=== PATIENT | female | born 1955 | race Caucasian/White ===

== ENCOUNTER 2016-09-29 06:34 | Inpatient (IN) | payer BC ==
--- NOTE | 2016-09-20 09:55 | Anesthesia Consultation ---
Anesthesia Consult and Med Hx Date of service: 09/29/16 - Airway Anesthetic Teeth Evaluation: Dentures ROM Head & Neck: Adequate Mental/Hyoid Distance: Adequate Mallampati Class: Class II Intubation Access Assessment: Good - Pre-Operative Health Status ASA Pre-Surgery Classification: ASA1 Proposed Anesthetic Plan: Epidural, Spinal Nerve Block: Femoral - Pulmonary Hx Smoking: No Hx Sleep Apnea: No (BOO PRE SCREEN LOW RISK) - Cardiovascular System Hx Hypertension: No - Other Systems Hx Cancer: No
[2016-09-20 09:57] LABS: Basophils % (Auto) 0.7 % (0.0-1.8); Eosinophils % (Auto) 7.7 % (0.0-4.3); Hemoglobin 15.6 gm/dl (10.1-14.3); Mean Corpuscular HGB Conc 33 % (30-34); Mean Corpuscular Hemoglobin 31 pg (28-32); Mean Corpuscular Volume 92 fl (79-97); Platelet Count 263 K/mm3 (140-440); White Blood Count 7.2 K/mm3 (4.5-11.0)
[2016-09-20 10:18] LABS: Alanine Aminotransferase 18 units/L (7-56); Albumin 4.4 g/dL (3.9-5); Albumin/Globulin Ratio 1.4 %; Alkaline Phosphatase 80 units/L (35-129); Anion Gap 17 mmol/L; Bilirubin,Total 0.5 mg/dL (0.1-1.2); Blood Urea Nitrogen 12 mg/dL (7-17); Calcium 10.2 mg/dL (8.4-10.2); Carbon Dioxide 23 mmol/L (22-30); Chloride 106.3 mmol/L (98-107); Glucose 97 mg/dL (65-100); Potassium 3.9 mmol/L (3.6-5.0); Sodium 142 mmol/L (137-145); Total Protein 7.6 g/dL (6.3-8.2)
--- NOTE | 2016-09-28 14:48 | History and Physical Report ---
History of Present Illness Date of examination: 09/28/16 Date of admission: 09/29/16 Chief complaint: Painful limitation of movement right knee, feeling it giving out. Evaluation in the office revealed loose body with early DJD. Being admitted for elective total knee arthroplasty. Medications and Allergies Allergies Allergy/AdvReac Type Severity Reaction Status Date / Time No Known Allergies Allergy Verified 09/09/16 11:32 Home Medications Medication Instructions Recorded Confirmed Last Taken Type Acyclovir [Zovirax Tab] 800 mg PO TID 09/20/16 09/20/16 Unknown History Cetirizine HCl [ZyrTEC] 10 mg PO DAILY 09/20/16 09/20/16 Unknown History Ergocalciferol [Vitamin D2] 1 cap PO 2XW 09/20/16 09/20/16 Unknown History Gabapentin [Neurontin] 900 mg PO QHS 09/20/16 09/20/16 Unknown History Pnv95/Ferrous Fumarate/FA 1 tab PO DAILY 09/20/16 09/20/16 Unknown History [ Caplet] traMADol 50 mg PO PRN PRN 09/20/16 09/20/16 Unknown History Active Meds: Active Medications Cefazolin Sodium (Ancef/Sterile Water 2 Gm/20 Ml) 2 gm in 20 mls @ 40 mls/hr IV PREOP NR PRN Reason: Protocol Stop: 09/29/16 23:59 Lactated Ringer's (Lactated Ringers) 1,000 mls @ 125 mls/hr IV DIRECT KM Review of Systems All systems: negative Exam - Constitutional Vitals: Temp Pulse Resp BP Pulse Ox 98.1 F 74 18 120/80 09/20/16 10:00 09/20/16 10:00 09/20/16 10:00 09/20/16 10:00 General appearance: Present: no acute distress, well-nourished - EENT Eyes: Present: PERRL ENT: hearing intact, clear oral mucosa - Neck Neck: Present: supple, normal ROM - Respiratory Respiratory effort: normal Respiratory: bilateral: CTA - Cardiovascular Heart Sounds: Present: S1 & S2. Absent: rub, click - Extremities Extremities: pulses symmetrical, No edema, abnormal (Right knee with a 5 varus , mild swelling, painful range of motion -3 flexion 100, no joint effusion. Joint line tenderness medial and patellofemoral. No neurovascular deficits. Collateral ligaments are stable.) Peripheral Pulses: within normal limits - Abdominal General gastrointestinal: Present: soft, non-tender, non-distended, normal bowel sounds Female genitourinary: Present: normal - Integumentary Integumentary: Present: clear, warm, dry - Musculoskeletal Musculoskeletal: gait normal, strength equal bilaterally - Psychiatric Psychiatric: appropriate mood/affect, intact judgment & insight - Neurologic Neurologic: CNII-XII intact, moves all extremities Results - Labs CBC & Chem 7: 09/20/16 09:45 09/20/16 09:45 Assessment and Plan - Patient Problems (1) Primary osteoarthritis of right knee Status: Chronic Plan to address problem: total knee arthroplasty right side
[~2016-09-29 06:34] MED LIST: ANCEF/STERILE WATER 2 GM/20 ML 2 GM/20 ML SYRINGE IV NR; LACTATED RINGERS 1,000 ML IV SCH; PEPCID PO NR; VERSED IV NR
[2016-09-29] MEDS ORDERED: NACL BACTERIOSTATIC INFILTRATI ONE (06:39)
[2016-09-29] MEDS ORDERED: VERSED IV NR (07:00)
[2016-09-29] MEDS ORDERED: NEURONTIN PO NR (07:00)
[2016-09-29] MEDS ORDERED: DECADRON IV NR (07:51)
[2016-09-29] MEDS ORDERED: MARCAINE-EPI/PF 0.5%-1:200,000 INFILTRATI ONE (07:53)
[2016-09-29] MEDS ORDERED: MARCAINE-EPI 0.5%-1:200,000 INFILTRATI ONE (07:54)
[2016-09-29] MEDS ORDERED: MARCAINE 0.5% 30 ML INFILTRATI ONE (07:55)
[2016-09-29] MEDS ORDERED: XYLOCAINE 1% 20 mL ONE (07:55)
[2016-09-29] MEDS ORDERED: XYLOCAINE CARDIAC IV ONE (07:56)
[2016-09-29] MEDS ORDERED: SUBLIMAZE ONE (07:56)
[2016-09-29] MEDS ORDERED: DIPRIVAN 10 MG/ML IV ONE (07:56)
[2016-09-29] MEDS ORDERED: CLONIDINE 1,000 MCG/10 ML VIAL EP ONE (08:00)
--- NOTE | 2016-09-29 08:28 | Admit Criteria Form ---
Admission Criteria Documentation: AMBULATORY SURGERY EXCEPTION CRITERIA Ambulatory Surgery Exception Criteria ( Place 'X' for any and all applicable criteria): Surgery or procedure performed on ambulatory basis may require inpatient stay for[A] ANY ONE of the following(1)(2)(3)(4)(5)(6)(7)(8)(9): [X] I. A preoperative situation, condition, or finding that warrants inpatient stay as indicated by ANY ONE of the following: [X] a) Inpatient care needed because of severity of a disease or condition rather than the surgery (eg, severe cardiac or respiratory disease, severe infection) (15) (16 ) (17) (18) [] b) Emergent procedure (eg, angioplasty for acute ischemia)(19) [] c) Complex surgical approach or situation as indicated by ANY ONE of the following(3): [] i) Open approach needed instead of usual endoscopic, transcatheter, or other less invasive procedure [] ii) Difficult approach because of previous operation [] iii) Airway monitoring required after open neck procedures(20)(21) [] iv) Large mass requiring unusually extensive dissection [] v) Additional complicating feature requiring inpatient care (eg, drain management)(22(23): [] d) Major surgery in a pt with high anesthetic risk as indicated by ANY ONE of the following (2)(3)(5)(7)(8): [] i) ASA risk class III or higher (severe systemic disease impairing function) [D] [] ii) Advanced age (eg, older than 85 years)(14)(24) [] iii) Symptomatic heart failure(25) [] iv) Symptomatic asthma or COPD(8)(21) [] v) Morbid obesity with hemodynamic or respiratory problems(20)( 21)(26)(27) [] vi) Obstructive sleep apnea(20)(21) [] vii) Former premature infants who are younger than 60 weeks [] viii) High risk for severe postoperative abnormalities (eg, severe postoperative hypocalcemia after parathyroidectomy for severe hyperparathyroidism)(27)( 28) [] ix) Unstable angina(25) [] e) Drug-related risk requiring inpatient stay as indicated by ANY ONE of the following(5)(10)(14)(32)(33) [] i) Procedure requires discontinuing drugs or other therapy (eg , antiarrhythmic medication, antiseizure medication), which necessitates inpatient observation or treatment.(18)(31) [] ii) Major surgery and high risk drug use as indicated by ANY ONE of the following: [] 1) Active abuse of cocaine or similar drug [] 2) Monoamine oxidase inhibitor use [] 3) Other drug identified as posing risk [] f) Inadequate outpatient care situation as indicated by ANY ONE of the following(5)(10)(14)(32)(33) [] i) Patient lives remote from medical facility and procedure has urgent complication potential, and temporary nearby residence cannot be arranged [] ii) Patient will have postprocedure incapacitation and inadequate assistance at home, or alternative level of care cannot be arranged. [] iii) Patient will have long general anesthesia or procedure side effect resolution time, and competent person to stay with patient on first postoperative night at home or alternative level of care cannot be arranged. []iv) Other inadequate outpatient situation that cannot be handled by other means [] II. A perioperative event, condition, or finding that warrants inpatient stay as indicated by ANY ONE of the following (1)(2)(3): [] a) Inadequate physiologic recovery: cardiovascular, respiratory, or hemodynamic status not normal or near preoperative baseline(18) [] b) Hemodynamic instability [] c) Patient not alert with near normal or baseline mental status [] d) Temperature not normal or as expected and not appropriate for outpatient treatment of condition [] e) Ambulatory or appropriate activity level status not yet achieved post procedure [E](34)(35)(36) [] f) Operative site not appropriate (eg, unexpected or excessive drainage or bleeding) [] g) Postoperative effects not resolved or adequately managed (eg, significant pain or vomiting not appropriate for outpatient or next level of care)(10)(12) [] h) Complicating features requiring inpatient care as indicated by ANY ONE of the following(37): [] i) Severe complications of procedure (eg, bowel injury, airway compromise, vascular injury,severe hemorrhage) [] ii) Extensive (eg, dissection far beyond usual scope of procedure ) or prolonged (eg, 120 minutes beyond usual) surgery needed requiring inpatient postoperative care [] iii) Conversion to an open or complex procedure that requires inpatient care (eg, open vs laparoscopic cholecystectomy, abdominal vs vaginal hysterectomy)(38) [] iv) Comorbid condition or test result identified during or post procedure that requires inpatient care (7) [] v) Malignant hyperthermia(30) [] vi) Other complicating feature requiring inpatient care(22)(23) Inpatient stay may be needed until ALL of the following are present (1)(2)(3)(4) (5)(6)(10)(14)(33)(40): []a) Physiologic recovery: cardiovascular, respiratory, and hemodynamic status normal or near preoperative baseline []b) Hemodynamic stability []c) Patient alert, with near normal or baseline mental status []d) Temperature appropriate: patient afebrile or temperature appropriate for outpt treatment of condition []e) Activity level appropriate: ambulatory or appropriate activity level post procedure []f) Operative site appropriate as indicated by ALL of the following: []i) Site dry or with expected drainage []ii) Any blood noted is as expected for procedure. []g) Postoperative effects resolved or managed as indicated by ALL of the following: []i) Pain management appropriate for outpatient (or next level of) care(10) []ii) Minimal nausea and vomiting: if present, successfully treated with oral medication(12) []iii) Headache, dizziness, or drowsiness (if present) are mild. []h) Voiding status acceptable as indicated by ANY ONE of the following: []i) Voiding spontaneously []ii) No voiding but instructions given for follow-up in 6 to 8 hours []iii) Urinary catheter in place, and instructions given for follow-up []i) Complicating features requiring inpatient care manageable at a lower level of care(37) []j) Comorbid conditions manageable at a lower level of care(37) The original [employer] content created by [employer] has been revised. The portions of the content which have been revised are identified through the use of italic text or in bold, and [employer] has neither reviewed nor approved the modified material. All other unmodified content is copyright [employer]. Please see references footnoted in the original [employer] edition 2016 Admission Criteria Met: Yes
[2016-09-29] MEDS ORDERED: ePHEDrine SULFATE ONE (08:32)
[2016-09-29] MEDS ORDERED: ZOFRAN ONE (08:53)
[2016-09-29] MEDS ORDERED: DECADRON ONE (08:53)
[2016-09-29] MEDS ORDERED: NACL 0.9% IR ONE ×2 (09:02)
[2016-09-29] MEDS ORDERED: NEOSPORIN GU IR ONE (09:02)
[2016-09-29] MEDS ORDERED: WATER FOR IRRIG STERILE IR ONE (09:03)
--- NOTE | 2016-09-29 09:51 | Procedure Note ---
Date of procedure: 09/29/16 Pre-op diagnosis: DJD Right knee Post-op diagnosis: same Procedure: Right total knee arthroplasty (Simeon, cemented) Anesthesia: GETA, regional Surgeon: CASSIDY EVANGELISTA Estimated blood loss: minimal Specimen disposition: to lab Condition: stable Disposition: PACU
[2016-09-29] MEDS ORDERED: FERROUS FUMARATE PO SCH (10:00)
[2016-09-29] MEDS ORDERED: [UNRECOGNIZED DRUG - OTHER] PO SCH (10:00)
[2016-09-29] MEDS ORDERED: VITAMIN D2 PO SCH ×2 (10:00→15:00)
[2016-09-29] MEDS ORDERED: NON-FORMULARY (Cetirizine Hcl [Zyrtec] 10 MG) PO SCH (10:00)
[2016-09-29] MEDS ORDERED: PNV95 PO SCH (10:00)
[2016-09-29] MEDS ORDERED: DILAUDID ONE (10:22)
--- NOTE | 2016-09-29 10:35 | Operative Report ---
PREOPERATIVE DIAGNOSIS: Degenerative joint disease, right knee. POSTOPERATIVE DIAGNOSIS: Degenerative joint disease, right knee. OPERATIVE PROCEDURE: Right total knee arthroplasty, Simeon system, cemented. SURGEON: Carolina Cash MD CULINARY ARTS TEACHER: Deanna Collins CSA ANESTHESIA: Regional block with general sedation. BLOOD LOSS: None. TOURNIQUET TIME: 1 hour 10 minutes. PROCEDURE IN DETAIL: The patient was taken to the surgery suite, satisfactory analgesia obtained with regional block supplemented with general sedation. Right lower limb prepped with ChloraPrep and satisfactorily draped. Tourniquet inflated to 250 mmHg pressure. The correct patient, procedure, and surgical sites were confirmed. Midline incision was made over the right knee anteriorly. Incision was deepened. Median parapatellar incision was made and the knee joint was entered. With the knee flexed 90 degree, distal femur was resected 9 mm thickness to the condyle using the intramedullary alignment system,resection carried out at 5 degree valgus. Using the #3 block, anterior, posterior chamfering cuts were then made. Drill holes were made to the distal end of the femur to allow seating of the femoral pegs. Meniscus was excised. Joint capsule was elevated and the tibia delivered anteriorly to the wound and with using the extramedullary alignment system, proximal tibia resected at 9 mm thickness to the medial tibial plateau. Resection made 90 degrees to the long axis of the tibial shaft. Tibial surface templated to size 3 and with the block in place, proximal tibia was osteotomized to allow seating of the tibial keel. The PCL was preserved. The trial reduction was carried out using the #3 tibial and femoral components 9 mm thick base spacer and stability appeared satisfactory with range of motion 0-115 degrees. Trial components were removed. A complete synovectomy was carried out. Multiple loose bodies were then identified, which was in the posterior gutter as well as into the medial and lateral gutters. This was then excised and removed. Patella was then reamed to allow an inset patella 27 mm and following thorough irrigation with the pulse irrigation system, components were implanted. Implantation was made with #3 femur and 3 tibial components. Extruding methyl methacrylate was debrided. Following this, wound was again irrigated, trial reduction carried out using the 9 and 11 mm thick spacers, 9 mm thick tibial spacer appeared giving optimal stability and range of motion. This was then exchanged for a high density polyethylene insert, 9 mm, which was locked in place. After irrigation, lateral osteophytes were excised from the tibia and the femoral condyles. Wound was again irrigated and closed in layers in the standard fashion using 0 Vicryl, 2-0 Vicryl and echo. At the completion of procedure, counts were accurate. Total blood loss none. Total tourniquet time 1 hour 10 minutes. Postop range of motion 0-115 degrees. [facility]# [id number] RADHA/HERBERT MCDANIEL
[2016-09-29] MEDS: DILAUDID IV PRN ×4 (11:03→12:00)
--- NOTE | 2016-09-29 11:09 | Post Anesthesia Evaluation ---
- Post Anesthesia Evaluation Patient Participated: Yes Airway Patent: Yes Stable Respiratory Function: Yes Nausea/Vomiting: No Temp > 96.8F: Yes Pain Manageable: Yes Adequeate Hydration: Yes Anesthesia Complications: No
[2016-09-29] MEDS ORDERED: MILK OF MAGNESIA PO PRN (12:03)
[2016-09-29] MEDS ORDERED: PHENERGAN PR PRN (12:03)
[2016-09-29] MEDS ORDERED: LOVENOX SUB-Q SCH (12:03)
[2016-09-29] MEDS ORDERED: AMBIEN PO PRN (12:03)
[2016-09-29] MEDS ORDERED: SODIUM CHLORIDE FLUSH SYRINGE 10 ML IV PRN (12:03)
[2016-09-29] MEDS ORDERED: ZOFRAN IV PRN (12:03)
[2016-09-29] MEDS ORDERED: TYLENOL PO PRN (12:03)
[2016-09-29] MEDS ORDERED: MORPHINE IV PRN (12:03)
[2016-09-29] MEDS ORDERED: TORADOL IV PRN (12:03)
[2016-09-29] MEDS ORDERED: NACL 0.9% 1000 ML 1,000 ML IV SCH (13:03)
--- NOTE | 2016-09-29 16:04 | Consultation ---
History of Present Illness - Reason for Consult Consult date: 09/29/16 MEDICAL CO-MANAGEMENT Requesting physician: CASSIDY EVANGELISTA - History of Present Illness Medicine was consulted for post-op co-management, patient has no complaints at this time Past History Past Medical History: arthritis, other (neuropathy) Past Surgical History: total knee replacement Social history: no significant social history Family history: no significant family history Medications and Allergies Allergies Allergy/AdvReac Type Severity Reaction Status Date / Time No Known Allergies Allergy Verified 09/09/16 11:32 Home Medications Medication Instructions Recorded Confirmed Last Taken Type Acyclovir [Zovirax Tab] 800 mg PO TID 09/20/16 09/29/16 09/22/16 History Cetirizine HCl [ZyrTEC] 10 mg PO DAILY 09/20/16 09/29/16 09/22/16 History Ergocalciferol [Vitamin D2] 1 cap PO 2XW 09/20/16 09/29/16 09/22/16 History Gabapentin [Neurontin] 900 mg PO QHS 09/20/16 09/29/16 09/22/16 History Pnv95/Ferrous Fumarate/FA 1 tab PO DAILY 09/20/16 09/29/16 09/22/16 History [ Caplet] traMADol 50 mg PO PRN PRN 09/20/16 09/29/16 09/22/16 History Active Meds: Active Medications Acetaminophen (Tylenol) 650 mg PO Q4H PRN PRN Reason: Pain MILD(1-3)/Fever >100.5/SANTIAGO Acyclovir (Zovirax) 800 mg PO TID [facility] Aspirin (Aspirin) 325 mg PO BID KM Celecoxib (Celebrex) 100 mg PO BID KM Enoxaparin Sodium (Lovenox) 40 mg SUB-Q QDAY@1000 KM Ergocalciferol (Vitamin D2) 50,000 unit PO SuWe [facility] Gabapentin (Neurontin) 900 mg PO QHS KM Hydromorphone HCl (Dilaudid) 0.5 mg IV Q10MIN PRN PRN Reason: Pain , Severe (7-10) Stop: 10/02/16 10:40 Last Admin: 09/29/16 12:00 Dose: 0.5 mg Lactated Ringer's (Lactated Ringers) 1,000 mls @ 125 mls/hr IV DIRECT KM Last Admin: 09/29/16 06:55 Dose: 125 mls/hr Cefazolin Sodium (Ancef/Ns 1 Gm/50 Ml) 1 gm in 50 mls @ 100 mls/hr IV Q8H [facility] Stop: 09/30/16 00:29 Sodium Chloride (Nacl 0.9% 1000 Ml) 1,000 mls @ 75 mls/hr IV DIRECT [facility] Ketorolac Tromethamine (Toradol) 15 mg IV Q6H PRN PRN Reason: Pain, Mild (1-3) Stop: 10/04/16 12:02 Loratadine (Claritin) 10 mg PO DAILY [facility] Magnesium Hydroxide (Milk Of Magnesia) 30 ml PO Q4H PRN PRN Reason: Constipation Morphine Sulfate (Morphine) 2 mg IV Q4H PRN PRN Reason: Pain, Moderate (4-6) Multivitamins/Iron/Calcium ( Vitamin) 1 each PO DAILY [facility] Ondansetron HCl (Zofran) 4 mg IV Q8H PRN PRN Reason: Nausea And Vomiting Last Admin: 09/29/16 14:50 Dose: 4 mg Oxycodone HCl (Oxycontin) 10 mg PO Q12HR [facility] Oxycodone/Acetaminophen (Percocet 5/325) 1 tab PO Q6H PRN PRN Reason: Pain, Moderate (4-6) Promethazine HCl (Phenergan) 25 mg LA Q6H PRN PRN Reason: Nausea And Vomiting Sodium Chloride (Sodium Chloride Flush Syringe 10 Ml) 10 ml IV PRN PRN PRN Reason: LINE FLUSH Zolpidem Tartrate (Ambien) 5 mg PO QHS PRN PRN Reason: Sleep Review of Systems All systems: negative (for post op R knee pain,) Exam - Constitutional Vitals: Temp Pulse Resp BP Pulse Ox 97.7 F 78 18 125/69 99 09/29/16 14:30 09/29/16 14:30 09/29/16 14:30 09/29/16 14:30 09/29/16 14:30 General appearance: Present: no acute distress, well-nourished - EENT Eyes: Present: PERRL ENT: hearing intact, clear oral mucosa - Neck Neck: Present: supple, normal ROM - Respiratory Respiratory effort: normal Respiratory: bilateral: CTA - Cardiovascular Heart Sounds: Present: S1 & S2. Absent: rub, click - Extremities Extremities: pulses symmetrical, No edema, abnormal (R knee post surgical changes) Peripheral Pulses: within normal limits - Abdominal General gastrointestinal: Present: soft, non-tender, non-distended, normal bowel sounds Female genitourinary: Present: normal - Integumentary Integumentary: Present: clear, warm, dry - Musculoskeletal Musculoskeletal: gait normal, strength equal bilaterally - Psychiatric Psychiatric: appropriate mood/affect, intact judgment & insight - Neurologic Neurologic: CNII-XII intact, moves all extremities Results - Labs CBC & Chem 7: 09/20/16 09:45 09/20/16 09:45 Assessment and Plan 61F w pmh of neuropathy sp Right total knee replacement 1. Neuropathy; continue gabapentin 2. Otherwise patient has no active medical problems medicine will sign off, please reconsult as needed
[2016-09-29] MEDS: ANCEF/NS 1 GM/50 ML 1 GM/50 ML BAG IV SCH (16:21)
[2016-09-29] MEDS: PRENATAL VITAMIN PO SCH (18:32)
[2016-09-29] MEDS ORDERED: NON-FORMULARY (Gabapentin [Neurontin] 900 MG) PO SCH (22:00)
[2016-09-29] MEDS: ZOVIRAX PO SCH (22:59)
[2016-09-29] MEDS: NEURONTIN PO SCH (23:00)
[2016-09-30] MEDS: ANCEF/NS 1 GM/50 ML 1 GM/50 ML BAG IV SCH (01:00)
--- NOTE | 2016-09-30 07:51 | Progress Note ---
Assessment and Plan alertt orientated in mod pain wound ok neuro intact chest clear. OOB c PT. DC in am Subjective Date of service: 09/30/16 Objective Vital signs: Vital Signs - 12hr 09/29/16 09/30/16 23:20 03:36 Temperature 98.0 F 99.0 F Pulse Rate [ 73 78 Right] Respiratory 18 20 Rate Blood Pressure 100/52 110/56 [Right Arm] O2 Sat by Pulse 98 97 Oximetry - Labs CBC & BMP: 09/20/16 09:45 09/20/16 09:45
[2016-09-30] MEDS: OxyCONTIN PO SCH ×2 (08:02→17:53)
[2016-09-30] MEDS: ZOVIRAX PO SCH ×2 (08:37→17:54)
--- NOTE | 2016-09-30 08:53 | XRay Report ---
RIGHT KNEE, TWO VIEWS HISTORY: Postoperative image, knee pain, arthroplasty. FINDINGS: Two views of the right knee were obtained following surgery. Right knee arthroplasty changes are evident. The hardware appears well applied. There is no evidence for fracture or malalignment. IMPRESSION: Stable appearance of the right knee prosthesis.
[2016-09-30] MEDS: CLARITIN PO SCH (10:30)
[2016-09-30] MEDS: ASPIRIN PO SCH (10:30)
[2016-09-30] MEDS: PERCOCET 5/325 PO PRN (10:31)
[2016-09-30] MEDS: LOVENOX SUB-Q SCH (10:32)
[2016-09-30] MEDS: PRENATAL VITAMIN PO SCH (17:54)
[2016-10-01] MEDS: NEURONTIN PO SCH
--- NOTE | 2016-10-01 08:36 | Progress Note ---
Assessment and Plan - Patient Problems (1) Primary osteoarthritis of right knee Status: Chronic Plan to address problem: Doing well postop, out of bed. Pain well-controlled. No neurovascular deficit. Plan discharged to home with home health care, DME as needed. Followup in office 10-14 days Subjective Date of service: 10/01/16 Principal diagnosis: DJD knee, status post total knee arthroplasty Objective Vital signs: Vital Signs - 12hr 09/30/16 09/30/16 20:48 23:29 Temperature 99.3 F Pulse Rate [ 70 Right] Respiratory 20 Rate Blood Pressure 142/63 [Right Arm] O2 Sat by Pulse 99 97 Oximetry - Labs CBC & BMP: 09/20/16 09:45 09/20/16 09:45
--- NOTE | 2016-10-01 08:36 | Discharge Summary ---
Providers - Providers Date of Admission: 09/29/16 06:34 Date of discharge: 10/01/16 Attending physician: CASSIDY EVANGELISTA 09/29/16 00:01 Consult to Case Management [CONS] Routine Services Needed at Discharge: Home Health Services Physical Therapy DME Equipment Notified:: ECG TECHNICIAN Additional Physician Instructions: Patient requests home health PT and nursing Consult to Physician [CONS] Routine Consulting Provider: CHANDRAKANT DE LA TORRE Reason For Exam: post op medical care Place consult to:: HOSPITALIST Notified:: DR. DE LA TORRE Was contact made?: Yes If yes, spoke with:: DR. DE LA TORRE Time called:: 14:35 Comment:: CONSULT COMPLETED - [place] Physical Therapy Evaluation and Treat [CONS] Routine Comment: Reason For Exam: s/p right total knee Mode of Transport?: Wheelchair Weight bearing status?: Partial wt bearing Assistive devices?: Yes If so list: Walker Primary care physician: LOAN REVIEW MANAGER Hospitalization Reason for admission: DJD knee Condition: Good Procedures: total knee arthroplasty, Simeon, cemented Disposition: DISCHARGED TO HOME OR SELFCARE - Discharge Diagnoses (1) Primary osteoarthritis of right knee Status: Chronic Core Measure Documentation - Palliative Care Palliative Care/ Comfort Measures: Not Applicable - Core Measures Any of the following diagnoses?: none Exam - Constitutional Vitals: Temp Pulse Resp BP Pulse Ox 99.3 F 70 20 142/63 97 09/30/16 23:29 09/30/16 23:29 09/30/16 23:29 09/30/16 23:29 09/30/16 23:29 Plan Activity: no driving until cleared by PCP, up only with assistance, fall precautions Weight Bearing Status: Weight Bear as Tolerated Diet: regular Wound: per your surgeon's advice Durable Medical Equipment Needed Upon Discharge: Walker-Rolling, Bedside commode -elevated Follow up with: PRIMARY CAREMD [Primary Care Provider] - 7 Days CASSIDY EVANGELISTA MD [Staff Physician] - 7 Days
[2016-10-01] MEDS: OxyCONTIN PO SCH ×2 (10:13)
[2016-10-01] MEDS: CLARITIN PO SCH (10:13)
[2016-10-01] MEDS: ASPIRIN PO SCH ×2 (10:14)
[2016-10-01] MEDS: LOVENOX SUB-Q SCH (10:15)
[2016-10-01] MEDS: ZOVIRAX PO SCH ×2 (10:16→13:27)
[2016-10-01] MEDS: PERCOCET 5/325 PO PRN (11:30)
[2016-10-01] MEDS: PRENATAL VITAMIN PO SCH (16:37)
[2016-10-01 20:47] VITALS: BP 104/51
== END 2016-10-01 20:21 | disposition home or self-care (01) | DRG 470 ==
LOC: 4A 06:34 → EDBD 08:30 → 2B-SURG 13:42
PROVIDERS: ADMIT Orthopaedic Surgery; ATTEND Orthopaedic Surgery
PROC: 0SRC0J9 Replacement of Right Knee Joint with Synthetic Substitute, Cemented, Open Approach (ICD-10-PCS; principal; 2016-09-29)
DX: M17.11 Unilateral primary osteoarthritis, right knee (principal); G62.9 Polyneuropathy, unspecified
CPT/HCPCS: 36415; 64450; 80053; 85025; 88304; 88305; 88311; 94760; A4217; C1776; J0690; J0735; J1100; J1170; J1650; J1885; J2001; J2250; J2270; J2405; J2704; J3010; J7030; J7120